=== PATIENT | male | born 1935 | race Caucasian/White ===

== ENCOUNTER 2018-09-24 17:05 | Inpatient (IN) ==
[2018-09-24] MEDS ORDERED: SODIUM CHLORIDE 0.9% 1,000 ML IV STA (17:22)
[2018-09-24] MEDS ORDERED: HYDROmorphone 2 MG/1 ML VIAL IV STA (17:22)
[2018-09-24] MEDS ORDERED: ONDANSETRON 4 MG/2 ML VIAL IV STA (17:22)
[2018-09-24] MEDS ORDERED: PANTOPRAZOLE 40 MG VIAL IV STA (17:22)
[2018-09-24 17:53] LABS: Basophils % 0.3 % (0.0-0.8); Eosinophils % 0.2 % (0.00-10.9); Hematocrit 37.7 VOL% (42.0-52.0); Hemoglobin 11.8 GM/DL (14.0-18.0); Immature Granulocytes % 0.3 %; Immature Granulocytes Absolute 0.02 #; Lymphocytes # 0.4 10*3/uL (1.4-4.0); Mean Corpuscular HGB Conc 31.3 GM/DL (32-36); Mean Corpuscular Hemoglobin 27 PG (27-34); Mean Corpuscular Volume 85.5 FL (87-102); Mean Platelet Volume 10.7 FL (9.6-12.0); Monocytes % 0.6 % (1.7-12.7); Neutrophils # 5.8 10*3/uL (1.4-7.4); Neutrophils % 91.6 % (38.7-73.9); Platelet Count 182 T/CUMM (130-400); Red Blood Count 4.41 MC/CUMM (3.8-5.5); Red Cell Distribution Width 14.9 % (9.3-17.3); White Blood Count 6.3 T/CUMM (4-12)
[2018-09-24 18:13] LABS: Albumin 3.6 G/DL (3.4-5.0); Calcium 9.2 MG/DL (8.5-10.1); Osmolality,Calculated 285.5 MOS/KG (273-304); Potassium 4.2 MMOL/L (3.5-5.1); Total Protein 7.5 G/DL (6.4-8.3)
[2018-09-24 18:41] LABS: Apearance,Urine Slightly Hazy (Clear); Bilirubin,Urine Negative (Negative); Blood, Urine Negative (Negative); Calcium Oxalate Crystals,Urine Occasional /HPF (Few); Glucose,Urine (UA) Negative (Negative); Hyaline Casts,Urine 1 /LPF (0-3); Ketones,Urine Negative (Negative); Mucus,Urine Occasional /LPF (Occasional); Nitrite,Urine Negative (Negative); Protein,Urine Negative; RBC,Urine 3 /HPF (0-4); Urine Color Yellow (Yellow); Urine Specific Gravity 1.035 (1.001-1.035); Urine Urobilinogen < 2.0 EU/DL (0.2-1.0); WBC,Urine 3 /HPF (0-6)
[2018-09-24 19:13] LABS: Hypochromasia 1+; Lymphocytes 7 % (20-55); Microcytosis 1+; Ovalocytes Slight; Platelet Estimate Normal; Segmented Neutrophils 93 % (50-85)
[2018-09-24 19:14] LABS: Total Cells Counted 100
[2018-09-24 19:15] LABS: Macrocytosis Slight
[2018-09-24] MEDS ORDERED: HYDROmorphone 2 MG/1 ML VIAL IV PRN (20:05)
[2018-09-24] MEDS: PIPERACILLIN/TAZOBACTAM 3,375 MG in SODIUM CHLORIDE 0.9% 100 ML IV SCH (20:32)
[2018-09-25] MEDS: PIPERACILLIN/TAZOBACTAM 3,375 MG in SODIUM CHLORIDE 0.9% 100 ML IV SCH ×3 (04:30→20:56)
[2018-09-25] MEDS: PANTOPRAZOLE 40 MG VIAL IV SCH (08:54)
[2018-09-25 09:05] LABS: Albumin 3.1 G/DL (3.4-5.0); Bilirubin,Direct 1.42 MG/DL (0.0-0.20); Bilirubin,Indirect 0.8 MG/DL (0.0-1.0); Bilirubin,Total 2.2 MG/DL (0.2-1.0); Total Protein 6.6 G/DL (6.4-8.3)
[2018-09-25] MEDS: METOPROLOL TARTRATE 25 MG TABLET PO SCH ×2 (10:20→20:56)
[2018-09-25] MEDS: PARoxetine 20 MG TABLET PO SCH (10:20)
[2018-09-25] MEDS: LISINOPRIL 20 MG TABLET PO SCH (10:20)
[2018-09-25] MEDS: ASPIRIN EC 81 MG TABLET PO SCH (12:37)
[2018-09-25] MEDS: LACTATED RINGERS 1,000 ML IV SCH (16:01)
[2018-09-26] MEDS: PIPERACILLIN/TAZOBACTAM 3,375 MG in SODIUM CHLORIDE 0.9% 100 ML IV SCH ×3 (04:16→21:34)
[2018-09-26] MEDS: LACTATED RINGERS 1,000 ML IV SCH (04:20)
[2018-09-26 05:04] LABS: Basophils % 0.2 % (0.0-0.8); Eosinophils # 0.1 10*3/uL (0.0-0.87); Eosinophils % 1.2 % (0.00-10.9); Hematocrit 32.8 VOL% (42.0-52.0); Hemoglobin 10.4 GM/DL (14.0-18.0); Immature Granulocytes % 0.2 %; Immature Granulocytes Absolute 0.01 #; Lymphocytes # 0.4 10*3/uL (1.4-4.0); Lymphocytes % 7.1 % (21.2-54.2); Mean Corpuscular HGB Conc 31.7 GM/DL (32-36); Mean Corpuscular Hemoglobin 27 PG (27-34); Mean Corpuscular Volume 83.5 FL (87-102); Mean Platelet Volume 11.1 FL (9.6-12.0); Monocytes # 0.3 10*3/uL (0.11-0.8); Monocytes % 5.4 % (1.7-12.7); Neutrophils # 5.2 10*3/uL (1.4-7.4); Neutrophils % 85.9 % (38.7-73.9); Platelet Count 139 T/CUMM (130-400); Red Blood Count 3.93 MC/CUMM (3.8-5.5); Red Cell Distribution Width 15.2 % (9.3-17.3); White Blood Count 6.1 T/CUMM (4-12)
[2018-09-26] MEDS: FLUTICASONE 50 MCG NASAL SPRAY 16 GM BOTTLE BOTH NARES SCH ×2 (05:16→21:35)
[2018-09-26 05:29] LABS: Alanine Aminotransferase 547 U/L (16-61); Albumin 2.8 G/DL (3.4-5.0); Alkaline Phosphatase 103 U/L (45-117); Aspartate Amino Transferase 277 U/L (0-37); Blood Urea Nitrogen 15 MG/DL (7-18); Calcium 8.4 MG/DL (8.5-10.1); Glucose 154 MG/DL (74-106); Lipase < 50.0 U/L (73-393); Osmolality,Calculated 276.8 MOS/KG (273-304); Potassium 3.9 MMOL/L (3.5-5.1); Sodium 137 MMOL/L (136-145); Total Protein 6.5 G/DL (6.4-8.3)
[2018-09-26] MEDS: PARoxetine 20 MG TABLET PO SCH (09:45)
[2018-09-26] MEDS: METOPROLOL TARTRATE 25 MG TABLET PO SCH ×2 (09:45→21:35)
[2018-09-26] MEDS: ASPIRIN EC 81 MG TABLET PO SCH (09:46)
[2018-09-26] MEDS: LISINOPRIL 20 MG TABLET PO SCH (09:46)
[2018-09-26] MEDS: PANTOPRAZOLE 40 MG VIAL IV SCH (09:50)
[2018-09-26 10:05] LABS: Hepatitis A Ab IgM Result Negative (Negative); Hepatitis B Core IgM Result Negative (Negative); Hepatitis B Surface Ag Quant < 0.10 Index; Hepatitis B Surface Ag Result Negative (Negative); Hepatitis C Virus Ab Quant 0.11 Index; Hepatitis C Virus Ab Result Negative (Negative)
[2018-09-26] MEDS: ONDANSETRON 4 MG/2 ML VIAL IV PRN ×2 (10:54→17:58)
[2018-09-26] MEDS ORDERED: diphenhydrAMINE CAP 25 MG CAPSULE PO ONE (21:00)
[2018-09-27] MEDS: LACTATED RINGERS 1,000 ML IV SCH (01:55)
[2018-09-27] MEDS: PIPERACILLIN/TAZOBACTAM 3,375 MG in SODIUM CHLORIDE 0.9% 100 ML IV SCH ×3 (05:00→20:41)
[2018-09-27] MEDS: ASPIRIN EC 81 MG TABLET PO SCH (09:21)
[2018-09-27] MEDS: PARoxetine 20 MG TABLET PO SCH (09:23)
[2018-09-27 09:24] LABS: Albumin 2.8 G/DL (3.4-5.0); Bilirubin,Total 0.7 MG/DL (0.2-1.0); Calcium 8.3 MG/DL (8.5-10.1); Osmolality,Calculated 279.7 MOS/KG (273-304); Potassium 3.7 MMOL/L (3.5-5.1); Total Protein 6.6 G/DL (6.4-8.3)
[2018-09-27] MEDS: METOPROLOL TARTRATE 25 MG TABLET PO SCH ×2 (09:31→20:43)
[2018-09-27] MEDS: LISINOPRIL 20 MG TABLET PO SCH (09:31)
[2018-09-27] MEDS: FLUTICASONE 50 MCG NASAL SPRAY 16 GM BOTTLE BOTH NARES SCH ×2 (09:32→20:44)
[2018-09-27] MEDS: PANTOPRAZOLE 40 MG VIAL IV SCH (13:18)
[2018-09-28] MEDS: LACTATED RINGERS 1,000 ML IV SCH ×3 (03:30→13:24)
[2018-09-28] MEDS: PIPERACILLIN/TAZOBACTAM 3,375 MG in SODIUM CHLORIDE 0.9% 100 ML IV SCH ×3 (04:46→20:27)
[2018-09-28 07:28] LABS: Albumin 2.9 G/DL (3.4-5.0); Bilirubin,Total 0.6 MG/DL (0.2-1.0); Calcium 8.4 MG/DL (8.5-10.1); Osmolality,Calculated 277.5 MOS/KG (273-304); Potassium 3.7 MMOL/L (3.5-5.1); Total Protein 6.7 G/DL (6.4-8.3)
[2018-09-28 07:38] LABS: Basophils % 0.8 % (0.0-0.8); Eosinophils # 0.1 10*3/uL (0.0-0.87); Eosinophils % 2.7 % (0.00-10.9); Hematocrit 33.1 VOL% (42.0-52.0); Hemoglobin 10.5 GM/DL (14.0-18.0); Immature Granulocytes % 0.3 %; Immature Granulocytes Absolute 0.01 #; Lymphocytes # 0.8 10*3/uL (1.4-4.0); Mean Corpuscular HGB Conc 31.7 GM/DL (32-36); Mean Corpuscular Hemoglobin 27 PG (27-34); Mean Corpuscular Volume 83.6 FL (87-102); Mean Platelet Volume 10.6 FL (9.6-12.0); Monocytes # 0.5 10*3/uL (0.11-0.8); Monocytes % 13.1 % (1.7-12.7); Neutrophils # 2.3 10*3/uL (1.4-7.4); Neutrophils % 62.1 % (38.7-73.9); Platelet Count 150 T/CUMM (130-400); Red Blood Count 3.96 MC/CUMM (3.8-5.5); Red Cell Distribution Width 14.9 % (9.3-17.3); White Blood Count 3.7 T/CUMM (4-12)
[2018-09-28 07:43] LABS: INR 0.9; PT Patient Result 10.2 SECS
[2018-09-28] MEDS ORDERED: ROCURONIUM 100 MG/10 ML VIAL IV ONE (09:00)
[2018-09-28] MEDS ORDERED: NEOSTIGMINE 10 MG/10 ML VIAL ONE (09:00)
[2018-09-28] MEDS ORDERED: ONDANSETRON 4 MG/2 ML VIAL ONE (09:00)
[2018-09-28] MEDS ORDERED: ATROPINE 0.4 MG/1 ML VIAL ONE (09:00)
[2018-09-28] MEDS ORDERED: PROPOFOL 200 MG/20 ML VIAL IV ONE (09:00)
[2018-09-28] MEDS ORDERED: ATROPINE 1 MG/10 ML SYRINGE ONE (09:00)
[2018-09-28] MEDS ORDERED: LIDOCAINE 100 MG/5 ML SYRINGE ONE (09:00)
[2018-09-28] MEDS ORDERED: GLYCOPYRROLATE 0.4 MG/2 ML VIAL ONE (09:00)
[2018-09-28] MEDS ORDERED: PHENYLEPHRINE 1 MG/10 ML SYRINGE IV ONE (09:00)
[2018-09-28] MEDS: PANTOPRAZOLE 40 MG VIAL IV SCH (09:02)
[2018-09-28] MEDS: LISINOPRIL 20 MG TABLET PO SCH (09:06)
[2018-09-28] MEDS: METOPROLOL TARTRATE 25 MG TABLET PO SCH ×2 (09:06→20:27)
[2018-09-28] MEDS ORDERED: INDOMETHACIN SUPP 50 MG SUPP RECTAL ONE (09:12)
[2018-09-28] MEDS ORDERED: fentaNYL 100 MCG/2 ML VIAL ONE (10:25)
[2018-09-28] MEDS ORDERED: LACTATED RINGERS 500 ML IV ONE (11:44)
[2018-09-28] MEDS: ASPIRIN EC 81 MG TABLET PO SCH (11:46)
[2018-09-28] MEDS: FLUTICASONE 50 MCG NASAL SPRAY 16 GM BOTTLE BOTH NARES SCH ×2 (11:46→20:26)
[2018-09-28] MEDS: PARoxetine 20 MG TABLET PO SCH (11:46)
[2018-09-28] MEDS ORDERED: hydrALAZINE 20 MG/1 ML VIAL IV ONE (15:23)
[2018-09-29 04:09] LABS: Basophils % 0.5 % (0.0-0.8); Eosinophils # 0.1 10*3/uL (0.0-0.87); Eosinophils % 3.1 % (0.00-10.9); Hematocrit 31.2 VOL% (42.0-52.0); Hemoglobin 9.9 GM/DL (14.0-18.0); Immature Granulocytes % 0.3 %; Immature Granulocytes Absolute 0.01 #; Lymphocytes # 1.2 10*3/uL (1.4-4.0); Lymphocytes % 31.3 % (21.2-54.2); Mean Corpuscular HGB Conc 31.7 GM/DL (32-36); Mean Corpuscular Hemoglobin 26 PG (27-34); Mean Corpuscular Volume 83.2 FL (87-102); Mean Platelet Volume 10.3 FL (9.6-12.0); Monocytes # 0.5 10*3/uL (0.11-0.8); Monocytes % 11.7 % (1.7-12.7); Neutrophils # 2.1 10*3/uL (1.4-7.4); Neutrophils % 53.1 % (38.7-73.9); Platelet Count 138 T/CUMM (130-400); Red Blood Count 3.75 MC/CUMM (3.8-5.5); Red Cell Distribution Width 14.7 % (9.3-17.3); White Blood Count 3.9 T/CUMM (4-12)
[2018-09-29] MEDS: LACTATED RINGERS 1,000 ML IV SCH ×2 (04:23→14:27)
[2018-09-29 04:24] LABS: Albumin 2.6 G/DL (3.4-5.0); Bilirubin,Total 0.8 MG/DL (0.2-1.0); Calcium 8.2 MG/DL (8.5-10.1); Osmolality,Calculated 280.4 MOS/KG (273-304); Potassium 3.7 MMOL/L (3.5-5.1); Total Protein 6.1 G/DL (6.4-8.3)
[2018-09-29] MEDS: PIPERACILLIN/TAZOBACTAM 3,375 MG in SODIUM CHLORIDE 0.9% 100 ML IV SCH ×3 (04:42→20:15)
[2018-09-29] MEDS ORDERED: TISSUE ADHESIVE 1 EACH APPLICATOR TOP ONE (06:35)
[2018-09-29] MEDS ORDERED: BUPIVACAINE 0.5% 50 ML VIAL ONE (06:35)
[2018-09-29] MEDS ORDERED: LIDOCAINE 1%/EPI INJ 20 ML VIAL ONE (06:35)
[2018-09-29] MEDS ORDERED: fentaNYL 100 MCG/2 ML VIAL ONE (09:25)
[2018-09-29] MEDS ORDERED: PROPOFOL 200 MG/20 ML VIAL IV ONE (09:25)
[2018-09-29] MEDS ORDERED: SEVOFLURANE 1 UNIT/15 MINUTE INH ONE (09:25)
[2018-09-29] MEDS ORDERED: GLYCOPYRROLATE 0.4 MG/2 ML VIAL ONE (09:26)
[2018-09-29] MEDS ORDERED: DEXAMETHASONE 4 MG/1 ML VIAL ONE (09:26)
[2018-09-29] MEDS ORDERED: PHENYLEPHRINE 1 MG/10 ML SYRINGE IV ONE (09:26)
[2018-09-29] MEDS ORDERED: ePHEDrine 50 MG/ML AMP ONE (09:26)
[2018-09-29] MEDS ORDERED: KETOROLAC 30 MG/1 ML VIAL ONE (09:26)
[2018-09-29] MEDS ORDERED: ACETAMINOPHEN 1,000 MG/100 ML VIAL IV ONE (09:26)
[2018-09-29] MEDS ORDERED: ONDANSETRON 4 MG/2 ML VIAL ONE (09:26)
[2018-09-29] MEDS ORDERED: NEOSTIGMINE 10 MG/10 ML VIAL ONE (09:27)
[2018-09-29] MEDS ORDERED: ROCURONIUM 100 MG/10 ML VIAL IV ONE (09:27)
[2018-09-29] MEDS ORDERED: ONDANSETRON 4 MG/2 ML VIAL IV PRN (09:31)
[2018-09-29] MEDS ORDERED: HYDROmorphone 2 MG/1 ML VIAL IV PRN (09:31)
[2018-09-29] MEDS: ASPIRIN EC 81 MG TABLET PO SCH (10:24)
[2018-09-29] MEDS: FLUTICASONE 50 MCG NASAL SPRAY 16 GM BOTTLE BOTH NARES SCH ×2 (10:25→20:15)
[2018-09-29] MEDS: METOPROLOL TARTRATE 25 MG TABLET PO SCH ×2 (10:25→20:15)
[2018-09-29] MEDS: PARoxetine 20 MG TABLET PO SCH (10:25)
[2018-09-29] MEDS: LISINOPRIL 20 MG TABLET PO SCH (10:25)
[2018-09-29] MEDS: PANTOPRAZOLE 40 MG VIAL IV SCH (10:25)
[2018-09-29] MEDS ORDERED: diphenhydrAMINE CAP 25 MG CAPSULE PO PRN (18:22)
[2018-09-30] MEDS: LACTATED RINGERS 1,000 ML IV SCH ×2 (04:37→21:17)
[2018-09-30] MEDS: PIPERACILLIN/TAZOBACTAM 3,375 MG in SODIUM CHLORIDE 0.9% 100 ML IV SCH ×3 (04:37→20:31)
[2018-09-30] MEDS: PANTOPRAZOLE 40 MG VIAL IV SCH (09:17)
[2018-09-30] MEDS: PARoxetine 20 MG TABLET PO SCH (09:18)
[2018-09-30] MEDS: LISINOPRIL 20 MG TABLET PO SCH (09:19)
[2018-09-30] MEDS: ASPIRIN EC 81 MG TABLET PO SCH (09:19)
[2018-09-30] MEDS: METOPROLOL TARTRATE 25 MG TABLET PO SCH ×2 (09:19→20:31)
[2018-09-30] MEDS: FLUTICASONE 50 MCG NASAL SPRAY 16 GM BOTTLE BOTH NARES SCH ×2 (09:19→20:31)
[2018-10-01] MEDS: PIPERACILLIN/TAZOBACTAM 3,375 MG in SODIUM CHLORIDE 0.9% 100 ML IV SCH ×2 (04:48→15:50)
[2018-10-01 05:07] LABS: Basophils % 0.4 % (0.0-0.8); Eosinophils # 0.1 10*3/uL (0.0-0.87); Eosinophils % 1.4 % (0.00-10.9); Hematocrit 23.8 VOL% (42.0-52.0); Hemoglobin 7.5 GM/DL (14.0-18.0); Immature Granulocytes % 0.3 %; Immature Granulocytes Absolute 0.02 #; Lymphocytes # 1.8 10*3/uL (1.4-4.0); Lymphocytes % 24.9 % (21.2-54.2); Mean Corpuscular HGB Conc 31.5 GM/DL (32-36); Mean Corpuscular Hemoglobin 27 PG (27-34); Mean Corpuscular Volume 84.1 FL (87-102); Mean Platelet Volume 10.7 FL (9.6-12.0); Monocytes # 0.6 10*3/uL (0.11-0.8); Neutrophils # 4.6 10*3/uL (1.4-7.4); Platelet Count 145 T/CUMM (130-400); Red Blood Count 2.83 MC/CUMM (3.8-5.5); Red Cell Distribution Width 14.9 % (9.3-17.3)
[2018-10-01 05:29] LABS: Albumin 2.4 G/DL (3.4-5.0); Bilirubin,Total 0.9 MG/DL (0.2-1.0); Calcium 7.7 MG/DL (8.5-10.1); Potassium 3.5 MMOL/L (3.5-5.1); Total Protein 5.8 G/DL (6.4-8.3)
[2018-10-01] MEDS: LACTATED RINGERS 1,000 ML IV SCH ×2 (07:29→19:17)
[2018-10-01] MEDS ORDERED: fentaNYL 100 MCG/2 ML VIAL IV ONE (09:58)
[2018-10-01] MEDS ORDERED: DIAZEPAM 5 MG TABLET PO ONE (09:58)
[2018-10-01] MEDS ORDERED: MIDAZOLAM 2 MG/2 ML VIAL IV ONE (09:58)
[2018-10-01] MEDS: PANTOPRAZOLE 40 MG VIAL IV SCH (10:13)
[2018-10-01] MEDS: FLUTICASONE 50 MCG NASAL SPRAY 16 GM BOTTLE BOTH NARES SCH ×2 (10:16→20:47)
[2018-10-01] MEDS ORDERED: fentaNYL 100 MCG/2 ML VIAL ONE (12:29)
[2018-10-01] MEDS ORDERED: MIDAZOLAM 2 MG/2 ML VIAL ONE (12:30)
[2018-10-01] MEDS ORDERED: ONDANSETRON 4 MG/2 ML VIAL ONE (13:14)
[2018-10-01] MEDS: ONDANSETRON 4 MG/2 ML VIAL IV PRN (13:17)
[2018-10-01] MEDS ORDERED: hydrALAZINE 20 MG/1 ML VIAL ONE (13:21)
[2018-10-01] MEDS ORDERED: hydrALAZINE 20 MG/1 ML VIAL IV ONE (13:33)
[2018-10-01] MEDS: PARoxetine 20 MG TABLET PO SCH (15:51)
[2018-10-01] MEDS: ASPIRIN EC 81 MG TABLET PO SCH (15:51)
[2018-10-01] MEDS: LISINOPRIL 20 MG TABLET PO SCH (15:52)
[2018-10-01] MEDS: METOPROLOL TARTRATE 25 MG TABLET PO SCH ×2 (15:52→20:46)
[2018-10-02] MEDS: PIPERACILLIN/TAZOBACTAM 3,375 MG in SODIUM CHLORIDE 0.9% 100 ML IV SCH ×2 (00:42→13:54)
[2018-10-02 05:27] LABS: Basophils % 0.2 % (0.0-0.8); Eosinophils % 0.5 % (0.00-10.9); Hemoglobin 7.4 GM/DL (14.0-18.0); Immature Granulocytes % 0.8 %; Immature Granulocytes Absolute 0.05 #; Lymphocytes # 1.1 10*3/uL (1.4-4.0); Lymphocytes % 18.2 % (21.2-54.2); Mean Corpuscular HGB Conc 32.2 GM/DL (32-36); Mean Corpuscular Hemoglobin 27 PG (27-34); Mean Corpuscular Volume 83.3 FL (87-102); Mean Platelet Volume 11.2 FL (9.6-12.0); Monocytes # 0.4 10*3/uL (0.11-0.8); Monocytes % 6.9 % (1.7-12.7); Neutrophils # 4.5 10*3/uL (1.4-7.4); Neutrophils % 73.4 % (38.7-73.9); PT Patient Result 10.6 SECS; Platelet Count 171 T/CUMM (130-400); Red Blood Count 2.76 MC/CUMM (3.8-5.5); Red Cell Distribution Width 14.7 % (9.3-17.3); White Blood Count 6.1 T/CUMM (4-12)
[2018-10-02 05:50] LABS: Calcium 7.8 MG/DL (8.5-10.1); Osmolality,Calculated 281.3 MOS/KG (273-304); Potassium 3.3 MMOL/L (3.5-5.1)
[2018-10-02] MEDS ORDERED: MAGNESIUM SULF RIDER 4 GM in PREMIX 1 EACH IV PRN (08:33)
[2018-10-02] MEDS ORDERED: MAGNESIUM SULF RIDER 2 GM in PREMIX 1 EACH IV PRN (08:33)
[2018-10-02 08:41] LABS: Hematocrit 23.3 VOL% (42.0-52.0); Hemoglobin 7.5 GM/DL (14.0-18.0)
[2018-10-02] MEDS: METOPROLOL TARTRATE 25 MG TABLET PO SCH ×2 (09:21→21:14)
[2018-10-02] MEDS: PANTOPRAZOLE 40 MG VIAL IV SCH (09:21)
[2018-10-02] MEDS: LISINOPRIL 20 MG TABLET PO SCH (09:21)
[2018-10-02] MEDS ORDERED: fentaNYL 100 MCG/2 ML VIAL ONE ×2 (09:24→10:00)
[2018-10-02] MEDS ORDERED: ROCURONIUM 100 MG/10 ML VIAL IV ONE (10:00)
[2018-10-02] MEDS ORDERED: LIDOCAINE 2% 5 ML VIAL ONE (10:00)
[2018-10-02] MEDS ORDERED: PHENYLEPHRINE 1 MG/10 ML SYRINGE IV ONE (10:00)
[2018-10-02] MEDS ORDERED: ONDANSETRON 4 MG/2 ML VIAL ONE (10:00)
[2018-10-02] MEDS ORDERED: PROPOFOL 200 MG/20 ML VIAL IV ONE (10:00)
[2018-10-02] MEDS ORDERED: SUCCINYLCHOLINE 200 MG/10 ML VIAL ONE (10:00)
[2018-10-02] MEDS ORDERED: INDOMETHACIN SUPP 50 MG SUPP RECTAL ONE (10:43)
[2018-10-02] MEDS ORDERED: SODIUM CHLORIDE 0.9% 1,000 ML IV PRN (10:43)
[2018-10-02] MEDS: ASPIRIN EC 81 MG TABLET PO SCH (11:02)
[2018-10-02] MEDS: PARoxetine 20 MG TABLET PO SCH (11:03)
[2018-10-02] MEDS ORDERED: SEVOFLURANE 1 UNIT/15 MINUTE INH ONE (12:15)
[2018-10-02] MEDS: FLUTICASONE 50 MCG NASAL SPRAY 16 GM BOTTLE BOTH NARES SCH ×2 (18:14→21:14)
[2018-10-03 05:56] LABS: Albumin 2.5 G/DL (3.4-5.0); Bilirubin,Total 1.4 MG/DL (0.2-1.0); Calcium 7.8 MG/DL (8.5-10.1); Osmolality,Calculated 281.3 MOS/KG (273-304); Potassium 3.4 MMOL/L (3.5-5.1)
[2018-10-03 08:09] LABS: Basophils % 0.2 % (0.0-0.8); Eosinophils # 0.1 10*3/uL (0.0-0.87); Hematocrit 31.5 VOL% (42.0-52.0); Immature Granulocytes % 0.5 %; Immature Granulocytes Absolute 0.04 #; Lymphocytes # 1.1 10*3/uL (1.4-4.0); Lymphocytes % 12.2 % (21.2-54.2); Mean Corpuscular HGB Conc 31.7 GM/DL (32-36); Mean Corpuscular Hemoglobin 27 PG (27-34); Mean Corpuscular Volume 85.4 FL (87-102); Mean Platelet Volume 11.9 FL (9.6-12.0); Monocytes # 0.5 10*3/uL (0.11-0.8); Monocytes % 6.2 % (1.7-12.7); Neutrophils # 6.9 10*3/uL (1.4-7.4); Neutrophils % 79.9 % (38.7-73.9); Platelet Count 155 T/CUMM (130-400); Red Cell Distribution Width 15.3 % (9.3-17.3)
[2018-10-03 08:12] LABS: Red Blood Count 3.69 MC/CUMM (3.8-5.5); White Blood Count 8.6 T/CUMM (4-12)
[2018-10-03 08:27] LABS: Hypochromasia 1+; Microcytosis 1+; Ovalocytes Slight
[2018-10-03 08:28] LABS: Platelet Estimate Adequate
[2018-10-03] MEDS: METOPROLOL TARTRATE 25 MG TABLET PO SCH ×2 (08:49→20:56)
[2018-10-03] MEDS: ASPIRIN EC 81 MG TABLET PO SCH (08:49)
[2018-10-03] MEDS: LISINOPRIL 20 MG TABLET PO SCH (08:49)
[2018-10-03] MEDS: PARoxetine 20 MG TABLET PO SCH (08:50)
[2018-10-03] MEDS: PANTOPRAZOLE 40 MG VIAL IV SCH (08:50)
[2018-10-03] MEDS: FLUTICASONE 50 MCG NASAL SPRAY 16 GM BOTTLE BOTH NARES SCH ×2 (08:56→20:56)
[2018-10-03] MEDS: ACETAMINOPHEN 325 MG TABLET PO PRN (20:56)
[2018-10-03] MEDS: LACTATED RINGERS 1,000 ML IV SCH ×2 (23:31→23:32)
[2018-10-04 03:52] LABS: Basophils % 0.2 % (0.0-0.8); Eosinophils # 0.2 10*3/uL (0.0-0.87); Eosinophils % 1.8 % (0.00-10.9); Hematocrit 30.8 VOL% (42.0-52.0); Hemoglobin 10.1 GM/DL (14.0-18.0); Immature Granulocytes % 0.7 %; Immature Granulocytes Absolute 0.06 #; Lymphocytes # 1.2 10*3/uL (1.4-4.0); Lymphocytes % 13.2 % (21.2-54.2); Mean Corpuscular HGB Conc 32.8 GM/DL (32-36); Mean Corpuscular Hemoglobin 27 PG (27-34); Mean Corpuscular Volume 83.2 FL (87-102); Mean Platelet Volume 10.8 FL (9.6-12.0); Monocytes # 0.4 10*3/uL (0.11-0.8); Monocytes % 4.9 % (1.7-12.7); Neutrophils # 7.1 10*3/uL (1.4-7.4); Neutrophils % 79.2 % (38.7-73.9); Platelet Count 232 T/CUMM (130-400); Red Cell Distribution Width 15.2 % (9.3-17.3); White Blood Count 8.9 T/CUMM (4-12)
[2018-10-04 04:09] LABS: Albumin 2.3 G/DL (3.4-5.0); Bilirubin,Total 0.8 MG/DL (0.2-1.0); Calcium 8.2 MG/DL (8.5-10.1); Osmolality,Calculated 281.3 MOS/KG (273-304); Potassium 3.5 MMOL/L (3.5-5.1); Total Protein 6.5 G/DL (6.4-8.3)
[2018-10-04] MEDS: PANTOPRAZOLE 40 MG VIAL IV SCH (08:43)
[2018-10-04] MEDS: LISINOPRIL 20 MG TABLET PO SCH (08:56)
[2018-10-04] MEDS: PARoxetine 20 MG TABLET PO SCH (08:57)
[2018-10-04] MEDS: ASPIRIN EC 81 MG TABLET PO SCH (08:58)
[2018-10-04] MEDS: METOPROLOL TARTRATE 25 MG TABLET PO SCH ×2 (08:58→21:45)
[2018-10-04] MEDS: FLUTICASONE 50 MCG NASAL SPRAY 16 GM BOTTLE BOTH NARES SCH ×2 (09:10→21:39)
[2018-10-04 13:06] LABS: Free T4 (Free Thyroxine) 1.29 NG/DL (0.76-1.46); Thyroid Stimulating Hormone 1.19 uIU/ml (0.358-3.74)
[2018-10-04] MEDS: hydrALAZINE 20 MG/1 ML VIAL IV PRN (17:15)
[2018-10-04] MEDS: ACETAMINOPHEN 325 MG TABLET PO PRN ×2 (17:15→23:39)
[2018-10-04 17:37] LABS: Apearance,Urine CLEAR (Clear); Bilirubin,Urine Negative (Negative); Blood, Urine Negative (Negative); Glucose,Urine (UA) Negative (Negative); Ketones,Urine Negative (Negative); Mucus,Urine Occasional /LPF (Occasional); Nitrite,Urine Negative (Negative); Protein,Urine Negative; RBC,Urine 1 /HPF (0-4); Urine Color Yellow (Yellow); WBC,Urine <1 /HPF (0-6)
[2018-10-05 04:50] LABS: Basophils % 0.4 % (0.0-0.8); Eosinophils # 0.1 10*3/uL (0.0-0.87); Eosinophils % 1.3 % (0.00-10.9); Hematocrit 31.8 VOL% (42.0-52.0); Hemoglobin 10.3 GM/DL (14.0-18.0); Immature Granulocytes % 0.7 %; Immature Granulocytes Absolute 0.06 #; Lymphocytes % 11.8 % (21.2-54.2); Mean Corpuscular HGB Conc 32.4 GM/DL (32-36); Mean Corpuscular Hemoglobin 27 PG (27-34); Mean Corpuscular Volume 84.1 FL (87-102); Monocytes # 0.6 10*3/uL (0.11-0.8); Monocytes % 7.6 % (1.7-12.7); Neutrophils # 6.5 10*3/uL (1.4-7.4); Neutrophils % 78.2 % (38.7-73.9); Platelet Count 281 T/CUMM (130-400); Red Blood Count 3.78 MC/CUMM (3.8-5.5); Red Cell Distribution Width 15.4 % (9.3-17.3); White Blood Count 8.3 T/CUMM (4-12)
[2018-10-05 05:05] LABS: Albumin 2.5 G/DL (3.4-5.0); Bilirubin,Total 0.9 MG/DL (0.2-1.0); Calcium 8.3 MG/DL (8.5-10.1); Osmolality,Calculated 283.1 MOS/KG (273-304); Potassium 3.3 MMOL/L (3.5-5.1); Total Protein 6.7 G/DL (6.4-8.3)
[2018-10-05] MEDS: PANTOPRAZOLE 40 MG VIAL IV SCH (08:43)
[2018-10-05] MEDS: POTASSIUM CHLORIDE RIDER 10 MEQ in PREMIX 1 EACH IV PRN ×2 (08:52→10:29)
[2018-10-05] MEDS: hydrALAZINE 20 MG/1 ML VIAL IV PRN ×2 (09:35)
[2018-10-05] MEDS: METOPROLOL TARTRATE 25 MG TABLET PO SCH (09:57)
[2018-10-05] MEDS: ASPIRIN EC 81 MG TABLET PO SCH (09:57)
[2018-10-05] MEDS: LISINOPRIL 20 MG TABLET PO SCH (09:58)
[2018-10-05] MEDS: PARoxetine 20 MG TABLET PO SCH (10:00)
[2018-10-05] MEDS: FLUTICASONE 50 MCG NASAL SPRAY 16 GM BOTTLE BOTH NARES SCH (10:06)
[2018-10-05] MEDS ORDERED: POTASSIUM CHLORIDE 20 MEQ TABLET PO ONE (10:41)
[2018-10-05 11:56] VITALS: BP 144/75
== END 2018-10-05 12:40 | disposition home health service (06) | DRG 419 ==
LOC: EDUNIT# → N.ED 17:05 → N.EDINP 20:05 → N.3E 20:49
PROVIDERS: ADMIT Surgery; ATTEND Surgery
PROC: LAPCHOL (2018-09-29 07:53)

== ENCOUNTER 2020-12-15 04:22 | Observation (INO) ==
[2020-12-15 05:29] LABS: Basophils % 0.6 % (0.0-0.8); Eosinophils # 0.2 10*3/uL (0.0-0.87); Eosinophils % 2.4 % (0.00-10.9); Hematocrit 34.6 VOL% (42.0-52.0); Hemoglobin 11.3 GM/DL (14.0-18.0); Immature Granulocytes % 0.2 %; Immature Granulocytes Absolute 0.01 #; Lymphocytes # 1.5 10*3/uL (1.4-4.0); Lymphocytes % 23.7 % (21.2-54.2); Mean Corpuscular HGB Conc 32.7 GM/DL (32-36); Mean Corpuscular Volume 83.4 FL (87-102); Mean Platelet Volume 10.2 FL (9.6-12.0); Monocytes % 10.1 % (1.7-12.7); Platelet Count 195 T/CUMM (130-400); Red Blood Count 4.15 MC/CUMM (3.8-5.5); Red Cell Distribution Width 14.2 % (9.3-17.3); White Blood Count 6.3 T/CUMM (4-12)
[2020-12-15 05:45] LABS: Albumin 3.6 G/DL (3.4-5.0); Bilirubin,Total 0.4 MG/DL (0.2-1.0); Calcium 8.9 MG/DL (8.5-10.1); Osmolality,Calculated 282.5 MOS/KG (273-304); Potassium 4.4 MMOL/L (3.5-5.1); Total Protein 7.3 G/DL (6.4-8.2)
[2020-12-15] MEDS ORDERED: HYDROmorphone 2 MG/1 ML VIAL IV STA (06:18)
[2020-12-15] MEDS ORDERED: AMPICILLIN/SULBACTAM 3,000 MG in SODIUM CHLORIDE 0.9% 100 ML IV STA (06:18)
[2020-12-15] MEDS ORDERED: ONDANSETRON 4 MG/2 ML VIAL IV STA (06:18)
[2020-12-15] MEDS ORDERED: CLINDAMYCIN INJ 900 MG/50 ML PREMIX IV ONE (07:08)
[2020-12-15] MEDS ORDERED: LIDOCAINE 2% 5 ML VIAL ONE (07:52)
[2020-12-15] MEDS ORDERED: propofoL 200 MG/20 ML VIAL IV ONE (07:52)
[2020-12-15] MEDS ORDERED: ETOMIDATE 40 MG/20 ML VIAL IV ONE (07:52)
[2020-12-15] MEDS ORDERED: fentaNYL 100 MCG/2 ML VIAL ONE (07:53)
[2020-12-15] MEDS: LACTATED RINGERS 1,000 ML IV SCH ×2 (08:10→11:01)
[2020-12-15] MEDS ORDERED: ePHEDrine 50 MG/ML VIAL ONE (09:17)
[2020-12-15] MEDS ORDERED: BISACODYL 5 MG TABLET PO PRN (09:42)
[2020-12-15] MEDS ORDERED: ONDANSETRON 4 MG/2 ML VIAL IV PRN (09:42)
[2020-12-15] MEDS ORDERED: ACETAMINOPHEN 325 MG TABLET PO PRN (09:42)
[2020-12-15] MEDS ORDERED: SEVOFLURANE 1 UNIT/15 MINUTE INH ONE (09:46)
[2020-12-15 11:36] LABS: Bilirubin,Urine Negative (Negative); Blood, Urine Negative (Negative); Glucose,Urine (UA) Negative (Negative); Ketones,Urine Negative (Negative); Nitrite,Urine Negative (Negative); Protein,Urine Negative; RBC,Urine 4 /HPF (0-4); Squamous Epithelial Cell,Urine Occasional /HPF (0-10); Urine Appearance CLEAR (Clear); Urine Color Yellow (Yellow); Urine Specific Gravity 1.048 (1.001-1.035); Urine Urobilinogen < 2.0 EU/DL (0.2-1.0)
[2020-12-15] MEDS ORDERED: DEXTROSE 50% 25 GM/50 ML VIAL IV PRN (12:25)
[2020-12-15] MEDS ORDERED: GLUCAGON 1 MG VIAL IM PRN (12:25)
[2020-12-16 06:27] LABS: Basophils % 0.4 % (0.0-0.8); Eosinophils # 0.1 10*3/uL (0.0-0.87); Hematocrit 31.9 VOL% (42.0-52.0); Hemoglobin 10.1 GM/DL (14.0-18.0); Immature Granulocytes % 0.4 %; Immature Granulocytes Absolute 0.02 #; Lymphocytes # 1.4 10*3/uL (1.4-4.0); Lymphocytes % 26.1 % (21.2-54.2); Mean Corpuscular HGB Conc 31.7 GM/DL (32-36); Mean Corpuscular Volume 84.4 FL (87-102); Mean Platelet Volume 10.6 FL (9.6-12.0); Monocytes % 8.4 % (1.7-12.7); Neutrophils % 62.7 % (38.7-73.9); Platelet Count 181 T/CUMM (130-400); Red Blood Count 3.78 MC/CUMM (3.8-5.5); Red Cell Distribution Width 14.4 % (9.3-17.3); White Blood Count 5.5 T/CUMM (4-12)
[2020-12-16] MEDS: PANTOPRAZOLE 40 MG TABLET PO SCH (08:21)
[2020-12-16] MEDS ORDERED: POLYETHYLENE GLYCOL POWDER 17 GM PACK PO PRN (18:05)
[2020-12-16] MEDS: PSYLLIUM POWDER 3.7 GM/PACK PO SCH (20:43)
[2020-12-17] MEDS: lisinopriL 20 MG TABLET PO SCH (08:34)
[2020-12-17] MEDS: METOPROLOL TARTRATE 25 MG TABLET PO SCH (08:35)
[2020-12-17] MEDS: PARoxetine 20 MG TABLET PO SCH (08:35)
[2020-12-17] MEDS: PANTOPRAZOLE 40 MG TABLET PO SCH (08:35)
[2020-12-17] MEDS ORDERED: PANTOPRAZOLE 40 MG TABLET PO SCH (09:00)
[2020-12-17] MEDS: PSYLLIUM POWDER 3.7 GM/PACK PO SCH ×2 (10:19→21:50)
[2020-12-17] MEDS ORDERED: GABAPENTIN 300 MG CAPSULE PO SCH (21:00)
[2020-12-17] MEDS ORDERED: ATORVASTATIN 10 MG TABLET PO SCH (21:00)
[2020-12-18] MEDS: lisinopriL 20 MG TABLET PO SCH (10:08)
[2020-12-18] MEDS: METOPROLOL TARTRATE 25 MG TABLET PO SCH (10:09)
[2020-12-18] MEDS: PANTOPRAZOLE 40 MG TABLET PO SCH (10:09)
[2020-12-18] MEDS: PARoxetine 20 MG TABLET PO SCH (10:09)
[2020-12-18] MEDS: PSYLLIUM POWDER 3.7 GM/PACK PO SCH (11:06)
[2020-12-18 15:33] VITALS: BP 119/73
== END 2020-12-18 16:40 | disposition home or self-care (01) ==
LOC: N.ED 04:22 → N.EDINP 04:22 → N.5E 07:55
PROVIDERS: ADMIT Student in an Organized Health Care Education/Training Program; ATTEND Student in an Organized Health Care Education/Training Program